=== PATIENT | female | born 1960 | race Caucasian/White ===

== ENCOUNTER 2020-03-25 10:21 | Emergency (ER) | payer BC, SELFPAY ==
[2020-03-25 10:34] VITALS: BP 151/96; PULSE 99; RESP 20; TEMP 36.8; O2SAT 99
--- NOTE | 2020-03-25 10:41 | ED.WOUNDLAC ---
HPI - Wound/Laceration General Chief Complaint: Wound/Laceration Stated Complaint: remove shakir Time Seen by Provider: 03/25/20 10:43 Source: patient History of Present Illness HPI narrative: Patient presents for staple removal. Patient states she had 2 shakir applied to the top of her head 7 days ago. Patient reports no problems no swelling no drainage no headache no concern for infection. Related Data Home Medications Medication Instructions Recorded Confirmed No Home Medications 03/25/20 03/25/20 Allergies Allergy/AdvReac Type Severity Reaction Status Date / Time No Known Allergies Allergy Verified 04/14/11 11:31 Review of Systems Review of Systems: Narrative: CONSTITUTIONAL: Denies fever, chills, or sweats. EYES: Denies visual changes, redness, or discharge. ENT: Denies rhinorrhea, congestion, sore throat, or otalgia. CARDIOVASCULAR: Denies chest pain, palpitations, or edema. RESPIRATORY: Denies cough or dyspnea. GASTROINTESTINAL: Denies abdominal pain, nausea, vomiting, or diarrhea. GENITOURINARY: Denies dysuria or hematuria. SKIN: Denies rash or itching. 2 shakir intact to top of head edges well approximated no redness no edema no concern for infection MUSCULOSKELETAL: Denies back pain, joint pain, or myalgia. NEUROLOGIC: Denies headache, numbness, or weakness. PSYCHIATRIC: Denies anxiety or depression. [facility] Social History Social History Gender identity (if verbalized by the patient): Female Comments At time of signature, agree with nursing past medical, surgical, social and family history. There is no relevant family history pertinent to the presenting complaint Exam Narrative: Exam Narrative: GENERAL: Well-appearing, well-nourished, and in no acute distress. HEAD: Normocephalic, atraumatic. EYES: PERRLA and EOMI. ENT: Nares clear, no rhinorrhea or epistaxis. Mucous membranes moist. NECK: Supple. CHEST: Clear to auscultation. No respiratory distress. HEART: Regular rate and rhythm. No murmur heard. Normal peripheral pulses. ABDOMEN: Soft, nontender, nondistended, normal active bowel sounds. EXTREMITIES: Normal range of motion. No edema. SKIN: Warm, dry, no rash. 2 shakir intact to top of head edges well approximated no redness no edema no concern for infection NEURO: No focal deficits. Alert and oriented x3. Oxford Coma Scale Eye Opening: Spontaneous 4 Helen Coma Scale Motor: Obeys Commands 6 Helen Coma Scale Verbal: Oriented 5 Oxford Coma Scale Total 15 Course Vital Signs Vital signs: Vital Signs Temperature 36.8 C 03/25/20 10:34 Pulse Rate 03/25/20 10:34 Respiratory Rate 03/25/20 10:34 Blood Pressure 151/96 H 03/25/20 10:34 Pulse Oximetry 03/25/20 10:34 Temperature 36.8 C 03/25/20 10:34 Pulse Rate 03/25/20 10:34 Respiratory Rate 03/25/20 10:34 Blood Pressure 151/96 H 03/25/20 10:34 Pulse Oximetry 99 03/25/20 10:34 Please BOO schedule a followup visit with your personal physician for further evaluation and treatment. Including recheck and discussion of your blood pressure. If your symptoms persist, change or worsen significantly before you can contact your personal physician then please, without delay, go to the emergency department for further evaluation Procedures Other Procedure Procedure 1: Other Procedure: 2 shakir removed to top of head. Patient tolerated well edges well approximated no drainage no redness no concern for infection. Discussed wound wound care and to monitor for any signs and symptoms of infection. Patient tolerated well and is agreeable with plan of care. MDM - Wound/Laceration Differential Diagnosis Differential diagnosis: Likely abscess, abrasion, avulsion of skin and other (Staple removal) Critical Care Time Critical Care Time Critical Care Time: No Discharge Plan Discharge Clinical Impression: Encounter for removal of shakir Patient Disposition: Home, Self-Care Conditi
== END 2020-03-25 10:44 | disposition home or self-care (01) ==
PROVIDERS: Emergency Provider Nurse Practitioner Family; PCP Physician Assistant
DX: S01.01XD Laceration without foreign body of scalp, subsequent encounter (principal); X58.XXXD Exposure to other specified factors, subsequent encounter
CPT/HCPCS: 99211; G0463